=== PATIENT | male | born 1970 | race Two or more races ===

== ENCOUNTER 2024-02-25 15:12 | Outpatient (AMB) | payer BC, MEDICAID, SELFPAY ==
--- NOTE | 2024-03-01 14:22 | PD.GSCLVISIT ---
Vital Signs - [facility] 03/01/24 14:26 Height 1.68 m Height Method Stated Weight 111 kg Weight Measurement Method Standing Scale BMI 39.3 Med/Allergies Allergies & Medications Allergies No Known Allergies Allergy (Verified 02/12/24 07:38) MA Intake Visit Data Collection New Patient or Established: Established Patient (seen at [facility] within 3 years) Seen by Clinical Staff ONLY (RN/MA): No Reason for Visit:: COLONOSCOPY RESULTS Pain Present Currently: No Pain scale:: 0 Pain Scale Used: [employer] Affairs Intern Required: Yes PCP or OBGYN visit in last 3 months: Yes Hx Now: No Do You Feel Safe at Home: Yes Authorities Contacted: N/A Smoking Status Smoking Status: Never smoker Immunization / Flu Flu Vaccine in the Last 12 Months: No Flu Vaccine Exclusion Criteria: No Exclusion Criteria Past Medical History Past Medical History NEUROLOGIC: Positive Neurological Disorders and Cerebrovascular Accident; Negative Seizures CARDIAC: Positive Cardiac Disorders and Hypertension; Negative Congestive Heart Failure RESPIRATORY: Negative Chronic Obstructive Pulmonary Disease (COPD) or Asthma GASTROINTESTINAL: Negative Gastrointestinal Disorders GENITOURINARY: Negative Genitourinary Disorders or Renal Disease MUSCULOSKELETAL: Negative Musculoskeletal Disorders ENDOCRINE: Positive Diabetes Mellitus Type 2 and Hypothyroidism; Negative Endocrine Disorders or Diabetes Mellitus Type 1 HEMATOLOGIC: Negative Anemia or Sickle Cell Disease OTHER HISTORY: Negative Hospitalization, Down Syndrome, Developmental Delay, Falls, Blood Transfusions, Anesthesia Reactions, Chicken Pox, Measles or Mumps Surgical History SURGICAL: Positive Abdominal Surgery Social History SMOKING STATUS: Smoking status: Never smoker ALCOHOL: Alcohol Intake: Former HOUSING: Housing: House LIVES WITH: Lives With: Children and Spouse Travel Risk Travel Hx Recent Travel: No HPI HPI Narrative Spoke to pt with in-person clinical data research 54M who presented for colonoscopy here to discuss results. 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 Given the inadequate prep I recommmended repeat scope in 5 years Office Procedures GNS Level of Care Nursing/Assessment Patient Status: Established Patient Nursing Assessment/Reassesment: Medication Reconciliation, Update PMH in EMR and Vital Signs Coordination of Care: Complex Care and Chronic Disease 1-5, Education Complex Pt/Fam, Consent,records obtained, informed consent, Results/Orders obtained and Staff clarify orders Special Needs: Language special needs Established Patient Charge Established Patient Point Assignment: 95 Established Patient Point Charge: EP Level 3 (80-115) Patient Portal Questionaires Social History Living Situation History Housing: House Housing Other:: pt lives with and dtr Tobacco History Smoking Status: Never smoker Alcohol History Alcohol Intake: Former Domestic Abuse History Do You Feel Safe at Home: Yes Review of Systems Report any current symptoms Only answer those that you have currently: Past Medical History Past Medical History Have you ever been diagnosed with any of the following: Neurological Problems Cerebrovascular Accident (CVA): Yes Seizures: No Cardiology Problems Congestive Heart Failure: No Hypertension: Yes Respiratory Problems Chronic Obstructive Pulmonary Disease (COPD): No Asthma: No Genital/Urinary Problems Renal Disease: No Endocrine Problems Diabetes Mellitus Type 1: No Diabetes Mellitus Type 2: Yes Hypothyroidism: Yes Blood Problems Anemia: No Sickle Cell Disease: No Other Problems Hospitalization: No Down Syndrome: No Developmental Delay: No Falls: No Blood Transfusions: No Anesthesia Reactions: No Chicken Pox: No Measles: No Mumps: No
[2024-03-01 14:26] VITALS: BMI 39.3
== END 2024-02-25 15:54 | disposition home or self-care (01) ==
PROVIDERS: PCP Registered Nurse; Referring Provider Registered Nurse; Supervising Provider Surgery; Visit Provider Surgery
DX: Z48.815 Encounter for surgical aftercare following surgery on the digestive system (principal)
CPT/HCPCS: 99213; G0463